=== PATIENT | male | born 1965 | race Caucasian/White ===

== ENCOUNTER 2018-08-09 10:23 | Outpatient (CLI) | payer OTHER | END 2018-08-09 10:24 | disposition home or self-care (01) | LOC: SC 10:23 | PROVIDERS: ATTEND Internal Medicine Pulmonary Disease | DX: R06.83 Snoring (principal); R06.81 Apnea, not elsewhere classified; G47.8 Other sleep disorders; R41.89 Other symptoms and signs involving cognitive functions and awareness; G47.10 Hypersomnia, unspecified; E66.01 Morbid (severe) obesity due to excess calories; Z68.42 Body mass index [BMI] 45.0-49.9, adult; Z87.891 Personal history of nicotine dependence | CPT/HCPCS: 99203; 99212 ==

== ENCOUNTER 2018-09-09 19:19 | Outpatient (CLI) | payer OTHER | END 2018-09-09 19:20 | disposition home or self-care (01) | LOC: SC 19:19 | PROVIDERS: ATTEND Internal Medicine Pulmonary Disease | DX: G47.33 Obstructive sleep apnea (adult) (pediatric) (principal) | CPT/HCPCS: 95811 ==

== ENCOUNTER 2018-09-28 09:15 | Outpatient (CLI) | payer OTHER ==
--- NOTE | 2018-09-28 12:51 | CONSULTATION NOTE ---
Information from patient questionnaire entered by Laura Moeller. I have reviewed and concur with the information entered by Laura Moeller. This document represents the service I personally performed and the decisions made by me, Brooks Bay MD, [facility]. - History of Present Illness HPI: Mr. Jefferson returned for follow up of the sleep study he had on 09/09/2018. The split-night polysomnography showed the following: The quality of the study is good. CPAP was initiated 146.0 minutes into the study and titrated up from 4 cmH2O and titrated up to CPAP at 14 cmH2O. DIAGNOSTIC: The patient had slightly reduced sleep efficiency due to frequent awakenings after the sleep onset. The sleep architecture was abnormal for sleep fragmentation and lack of REM sleep. Respiratory monitoring showed very severe obstructive sleep apnea-hypopnea (AHI = 95.3) associated with frequent arousals, oxyhemoglobin desaturation and moderate hypoxia (davis oxygen saturation of 80 %). The respiratory events occurred independently of sleep stage and body position. Snoring was moderate to loud in intensity. There was no significant periodic limb movement of sleep. THERAPEUTIC: CPAP at 14 cmH2O appeared to be optimal (AHI of 4.4 per hour on the pressure). There was supine REM sleep on the pressure. Oxygen saturation was mildly low due to the frequent residual respiratory events on lower CPAP settings. The patient appeared to have tolerated positive airway pressure therapy very well. The patients sleep efficiency was normal. Except for mild sleep fragmentation, the sleep architecture was normal as well. There was no significant periodic limb movement of sleep. Cardiac rhythm was normal sinus rhythm without significant arrhythmia. No abnormal behavior (parasomnia) observed during the night. The patient was informed of these findings. I explained to him the pathophysiology behind obstructive sleep apnea. We then spent quite a bit of time discussing different treatment options. For mild obstructive sleep apnea, surgery and oral appliance are alternatives to nasal CPAP therapy but in moderate or severe cases, nasal CPAP is the most effective and reliable treatment. Weight loss in an obese individual is strongly recommended. After some discussion, he opted to go with the nasal CPAP therapy. I explained to him how CPAP machine works and what to expect when using the machine. He is encouraged to use CPAP every night especially in the first 2 to 3 nights in order to get used to it. He should call his CPAP supplier or me to discuss any mechanical problem that may occur. If he snores or feels like he is not getting enough air from the machine, he should notify me and I will increase the pressure. Initial [place] Sleepiness Scale score: 8 Current [place] Sleepiness Scale score: 5 - Allergies/Medications Allergies and home medications reviewed: Yes - Review of Systems Review of systems same as previous: Yes - Impression 1. Obstructive Sleep Apnea-Hypopnea Syndrome, very severe, associated with moderate hypoxemia and sleep fragmentation. Obviously this is the cause of the patients symptoms of unrefreshed sleep, and excessive daytime sleepiness. As mentioned above, the patient will be started on autoCPAP set between 12 and 16 cmH2O. I anticipate good treatment compliance. - Plan 1. Prescription made for an autoCPAP, heated humidifier, and related supplies. 2. Attempt to lose weight and avoid alcohol consumption near bedtime. 3. The patient is again cautioned about driving until his sleepiness completely resolves on the CPAP therapy. 4. Return in six weeks for follow up. I will assess his response and compliance at that time. This visit is time-based and I spent 15 minutes with the patient and more than 50% of the time was spent counseling the patient.
== END 2018-09-28 09:16 | disposition home or self-care (01) ==
LOC: SC 09:15
PROVIDERS: ATTEND Internal Medicine Pulmonary Disease
DX: G47.33 Obstructive sleep apnea (adult) (pediatric) (principal)
CPT/HCPCS: 99212; 99213

== ENCOUNTER 2019-01-31 09:06 | Outpatient (CLI) | payer OTHER ==
--- NOTE | 2019-01-31 09:44 | SLEEP CARE CONSULTATION ---
Information from patient questionnaire entered by Laura Moeller. I have reviewed and concur with the information entered by Laura Moeller. This document represents the service I personally performed and the decisions made by me, Brooks Bay MD, [facility]. History of Present Illness Previous diagnosis: Very Severe, Obstructive Sleep Apnea-Hypopnea Syndrome AHI: 95.3 Reason for follow up: first compliance Equipment type: CPAP Equipment obtained from: [employer] Prior sleep studies: Yes HPI additional information: HPI: Mr. Jefferson returned today for follow up of nasal CPAP therapy. He was diagnosed to have very severe obstructive sleep apnea-hypopnea syndrome. The patient wears a Resp[employer]ics DreamWear nasal cushion mask. He reports using the device nightly and all through the night. The compliance report shows usage in 30 nights out of the past 30 nights, averaging 5.1 hours a night. The > 4 hour compliance rate for the past 30 days is 76.7%. He complained of no particular problem with the device such as soreness on the face, dry nose, epistaxis, nasal congestion or headache. He thinks that the pressure of 12 16 cmH2O is comfortable. On the CPAP therapy he notices improvement in his sleep quality, and that he wakes up feeling fresher in the morning and more awake/alert during the day. His notices no snore at all. The average residual AHI is 1.8; and average time in large leak per day is 23 minutes. The 90th percentile pressure is 15 cmH2O. CPAP Compliance Data - Data Reviewed with Patient Average duration of nightly device use: 5h 4m Compliance rate %: 76.7 Current pressure setting (cmH2O): 12-16 Humidity settin Heated hose settin Average residual AHI: 1.8 Average large leak: 23m 34s Subjective Patient concerns: reports: dry mouth, nose, throat (only when i'm stuffy), other (drippy nose) Current pressure setting perceived as: comfortable Initial [place] Sleepiness Scale score: 8 Current [place] Sleepiness Scale score: 4 Allergies and Home Medications Drug allergies reviewed: Yes Home medication list reviewed: Yes Review of Systems Review of systems same as previous: Yes Physical Exam Weight: 366 lb Impression and Plan Plan: IMPRESSION: 1. Obstructive Sleep Apnea-Hypopnea Syndrome, very severe, with the patient doing well on nasal CPAP therapy. He has excellent compliance and significant clinical improvement. The current pressure appears effective and comfortable. Overall, he is very satisfied with treatment and plans to continue with it long- term. No adjustment is necessary today. PLAN: 1. Continue with autoCPAP set at 12 - 16 cmH2O. 2. Try to lose weight 3. Try ResMed N30i mask 4. Return in one year for follow up or earlier if there is any problem with the treatment. I spent 100% of this 20 minute visit face to face with the patient with greater than 50% of this was spent time counseling the patient and coordination of care.
== END 2019-01-31 09:07 | disposition home or self-care (01) ==
LOC: SC 09:06
PROVIDERS: ATTEND Internal Medicine Pulmonary Disease
DX: G47.33 Obstructive sleep apnea (adult) (pediatric) (principal)
CPT/HCPCS: 99212; 99213